=== PATIENT | female | born 1975 | race Two or more races ===

== ENCOUNTER 2017-09-06 09:17 | Outpatient (CLI) | payer OTHER ==
[~2017-09-06 09:17] MED LIST: CIPRO500 MG PO; FLAGYL500MG PO; PROTONIX40 MG PO
== END 2017-09-06 11:32 | disposition home or self-care (01) ==
LOC: MAMO-SONO 09:17
DX: Z12.31 Encounter for screening mammogram for malignant neoplasm of breast (principal); N60.11 Diffuse cystic mastopathy of right breast; N60.12 Diffuse cystic mastopathy of left breast